=== PATIENT | female | born 1930 | race Caucasian/White ===

== ENCOUNTER 2017-10-07 09:04 | Outpatient (CLI) | payer MEDICARE ==
[2015-12-04 10:27] VITALS: O2SAT 99
== END 2017-10-07 09:05 | disposition home or self-care (01) | DRG 563 ==
LOC: CONVCARE 09:04
PROVIDERS: ATTEND Orthopaedic Surgery
DX: S52.531A Colles' fracture of right radius, initial encounter for closed fracture (principal)
CPT/HCPCS: 73110

== ENCOUNTER 2017-10-21 09:12 | Outpatient (CLI) | payer MEDICARE ==
[2015-12-04 10:27] VITALS: O2SAT 99
== END 2017-10-21 09:13 | disposition home or self-care (01) | DRG 561 ==
LOC: CONVCARE 09:12
PROVIDERS: ATTEND Orthopaedic Surgery
DX: S52.571D Other intraarticular fracture of lower end of right radius, subsequent encounter for closed fracture with routine healing (principal)
CPT/HCPCS: 73110

== ENCOUNTER 2017-11-04 10:40 | Outpatient (CLI) | payer MEDICARE ==
[2015-12-04 10:27] VITALS: O2SAT 99
== END 2017-11-04 10:41 | disposition home or self-care (01) | DRG 561 ==
LOC: CONVCARE 10:40
PROVIDERS: ATTEND Orthopaedic Surgery
DX: S52.501D Unspecified fracture of the lower end of right radius, subsequent encounter for closed fracture with routine healing (principal); S52.601D Unspecified fracture of lower end of right ulna, subsequent encounter for closed fracture with routine healing
CPT/HCPCS: 73110

== ENCOUNTER 2018-01-23 12:51 | Emergency (ER) | payer MEDICARE ==
[2018-01-23 12:56] VITALS: RESP 16; TEMP 97.6; O2SAT 97
[2018-01-23] MEDS: CEPHALEXIN 250 MG/5 ML BOTTLE PO ONE (13:24)
[2018-01-23 13:40] VITALS: BP 189/100; PULSE 70
== END 2018-01-23 13:37 | disposition home or self-care (01) | DRG 605 ==
LOC: ED 12:51
DX: S41.111A Laceration without foreign body of right upper arm, initial encounter (principal); I10 Essential (primary) hypertension
CPT/HCPCS: 12002; 99284; A9270-GY

== ENCOUNTER 2018-02-26 11:08 | Inpatient (IN) | payer MEDICARE ==
[2018-02-26] MEDS ORDERED: CLONIDINE 0.1 MG TAB ONE (11:29)
[2018-02-26] MEDS ORDERED: ONDANSETRON HCL 4 MG/2 ML SOL ONE (11:29)
[2018-02-26] MEDS ORDERED: ONDANSETRON HCL 4 MG/2 ML SOL IV ONE (11:37)
[2018-02-26] MEDS ORDERED: CLONIDINE 0.1 MG TAB PO ONE (11:37)
[2018-02-26 11:44] LABS: BASOPHILS % (AUTO) 0 % (0-3); EOSINOPHILS % (AUTO) 1 % (0-9); HEMATOCRIT 41 % (35-47); HEMOGLOBIN 13.7 gm/dl (12.0-15.5); LYMPHOCYTES % (AUTO) 12.61 % (10-50); MEAN CORPUSCULAR VOLUME 88 fL (81-99); MONOCYTES % (AUTO) 5.9 % (0-12); NEUTROPHILS % (AUTO) 80.5 % (37-80)
[2018-02-26] MEDS ORDERED: SODIUM CHLORIDE 0.9% 1000ML 500 ML IV SCH (11:45)
[2018-02-26 11:58] LABS: ALBUMIN 3.6 gm/dl (3.4-5.0); ALKALINE PHOSPHATASE 81 IU/L (46-116); ALT 26 IU/L (14-63); AST 23 IU/L (15-37); BILIRUBIN,TOTAL 0.7 mg/dl (0.2-1.0); BLOOD UREA NITROGEN 20 mg/dl (7-18); CALCIUM 9.1 mg/dl (8.5-10.1); CARBON DIOXIDE 28.6 mEq/L (21-32); CHLORIDE 89 mMol/L (98-107); CREATININE 0.69 mg/dl (0.60-1.00); GLOM FILT RATE 81 mL/min (>60); GLUCOSE 147 mg/dl (74-106); SODIUM 125 mMol/L (136-145); TOTAL PROTEIN 6.8 gm/dl (6.4-8.2); TROP I < 0.017 ng/ml (0.000-0.056)
[2018-02-26] MEDS ORDERED: METOCLOPRAMIDE HYDROCHLORIDE 5 MG/ML SOL IV ONE (12:44)
[2018-02-26] MEDS ORDERED: METOCLOPRAMIDE HYDROCHLORIDE 5 MG/ML SOL ONE (12:45)
[2018-02-26 12:47] LABS: APPEARANCE,URINE Cloudy; BILIRUBIN,URINE NEGATIVE (NEGATIVE); COLOR,URINE Yellow; GLUCOSE, URINE (UA) NEGATIVE (NEGATIVE); KETONES,URINE 1+ (NEGATIVE); LEUKOCYTE ESTERASE ,URINE NEGATIVE (NEGATIVE); NITRATE,URINE NEGATIVE (NEGATIVE); OCCULT BLOOD,URINE NEGATIVE (NEG-TRACE); PH,URINE 7.5; UROBILINOGEN,URINE 0.2 (0.2-1.0 EU)
[2018-02-26 13:03] LABS: EPITHELIAL CELLS 0-2 (SQUAMOUS); RBC,URINE NEG (0-3AV/HPF); WBC,URINE NEG (0-5AV/HPF)
[2018-02-26 13:04] LABS: BACTERIA NEGATIVE (< 1+); CRYSTALS 2+ AMORPH PHOSPHATES (0-3 AVE/HPF)
[2018-02-26] MEDS ORDERED: METOCLOPRAMIDE HYDROCHLORIDE 5 MG/ML SOL IV SCH (14:00)
[2018-02-26] MEDS ORDERED: PATIENT EDUCATION 1 MISC PRN (14:02)
[2018-02-26] MEDS: SODIUM CHLORIDE 0.9% 1000ML 1,000 ML IV SCH (15:00)
[2018-02-26] MEDS: SODIUM CHLORIDE 0.9% FLUSH 10 ML SOL IV PRN (15:03)
[2018-02-26] MEDS: METOCLOPRAMIDE HYDROCHLORIDE 5 MG/ML SOL IV PRN ×2 (15:05→23:41)
[2018-02-26] MEDS: METOPROLOL TARTRATE 25 MG TAB PO SCH (20:29)
[2018-02-26] MEDS ORDERED: ASPIRIN EC 81 MG PO SCH (21:00)
[2018-02-27] MEDS: SODIUM CHLORIDE 0.9% 1000ML 1,000 ML IV SCH ×2 (00:30→11:12)
[2018-02-27 07:34] LABS: CARBON DIOXIDE 26.9 mEq/L (21-32); CREATININE 0.51 mg/dl (0.60-1.00)
[2018-02-27] MEDS: METOCLOPRAMIDE HYDROCHLORIDE 5 MG/ML SOL IV PRN (07:48)
[2018-02-27] MEDS ORDERED: LISINOPRIL 5 MG TAB PO SCH (09:00)
[2018-02-27] MEDS: PANTOPRAZOLE SODIUM 40 MG ECT PO SCH (09:41)
[2018-02-27] MEDS: METOPROLOL TARTRATE 25 MG TAB PO SCH ×2 (09:41→20:14)
[2018-02-27] MEDS: SENNOSIDES A AND B 8.6 MG TAB PO SCH (09:41)
[2018-02-27] MEDS: POTASSIUM CHLORIDE 10 MEQ TER PO SCH ×2 (09:42→12:43)
[2018-02-27] MEDS: CHLORTHALIDONE 25 MG TAB PO SCH (09:43)
[2018-02-27] MEDS ORDERED: SODIUM CHLORIDE 0.9% 1000 ML SOL IV SCH (11:15)
[2018-02-27] MEDS ORDERED: ZOLPIDEM TARTRATE 5 MG TAB PO PRN (20:22)
[2018-02-27] MEDS ORDERED: POTASSIUM CHLORIDE 10 MEQ TER PO SCH (21:00)
[2018-02-27] MEDS: MECLIZINE HYDROCHLORIDE 12.5 MG TAB PO PRN (21:06)
[2018-02-28] MEDS: SODIUM CHLORIDE 0.9% FLUSH 10 ML SOL IV PRN ×2 (00:07→15:53)
[2018-02-28] MEDS: METOCLOPRAMIDE HYDROCHLORIDE 5 MG/ML SOL IV PRN (00:07)
[2018-02-28] MEDS: SENNOSIDES A AND B 8.6 MG TAB PO SCH (08:39)
[2018-02-28] MEDS: PANTOPRAZOLE SODIUM 40 MG ECT PO SCH (08:39)
[2018-02-28] MEDS: MECLIZINE HYDROCHLORIDE 12.5 MG TAB PO PRN (08:41)
[2018-02-28] MEDS: METOPROLOL TARTRATE 25 MG TAB PO SCH ×2 (08:42→21:48)
[2018-02-28] MEDS: LISINOPRIL 20 MG TAB PO SCH (08:42)
[2018-02-28] MEDS: CHLORTHALIDONE 25 MG TAB PO SCH (08:43)
[2018-02-28 09:02] LABS: BASOPHILS % (AUTO) 0 % (0-3); CALCIUM 8.3 mg/dl (8.5-10.1); CARBON DIOXIDE 28.9 mEq/L (21-32); CREATININE 0.51 mg/dl (0.60-1.00); EOSINOPHILS % (AUTO) 1 % (0-9); HEMATOCRIT 37 % (35-47); HEMOGLOBIN 12.8 gm/dl (12.0-15.5); LYMPHOCYTES % (AUTO) 17.88 % (10-50); MEAN CORPUSCULAR HEMOGLOBIN 29.5 pg (27.0-32.0); MEAN CORPUSCULAR HGB CONC 34.3 gm/dl (32.0-36.0); MEAN CORPUSCULAR VOLUME 86 fL (81-99); NEUTROPHILS % (AUTO) 72.3 % (37-80); POTASSIUM 3.6 mMol/L (3.5-5.1)
[2018-02-28] MEDS: POTASSIUM CHLORIDE 10 MEQ TER PO SCH ×2 (09:40→21:48)
[2018-02-28] MEDS: AMLODIPINE 5 MG TAB PO SCH (09:41)
[2018-02-28] MEDS ORDERED: ACETAMINOPHEN 325 MG PO PRN (13:06)
[2018-02-28] MEDS: SODIUM CHLORIDE 0.9% FLUSH 10 ML SOL IV SCH (16:30)
[2018-03-01] MEDS: SODIUM CHLORIDE 0.9% FLUSH 10 ML SOL IV SCH ×3 (00:51→18:26)
[2018-03-01 07:18] LABS: BASOPHILS % (AUTO) 1 % (0-3); EOSINOPHILS % (AUTO) 2 % (0-9); HEMATOCRIT 36 % (35-47); HEMOGLOBIN 12.4 gm/dl (12.0-15.5); LYMPHOCYTES % (AUTO) 23.52 % (10-50); MEAN CORPUSCULAR HEMOGLOBIN 29.6 pg (27.0-32.0); MEAN CORPUSCULAR HGB CONC 34.1 gm/dl (32.0-36.0); MEAN CORPUSCULAR VOLUME 87 fL (81-99); NEUTROPHILS % (AUTO) 63.1 % (37-80)
[2018-03-01 07:20] LABS: CALCIUM 8.1 mg/dl (8.5-10.1); CREATININE 0.57 mg/dl (0.60-1.00)
[2018-03-01 07:34] LABS: CARBON DIOXIDE 30.2 mEq/L (21-32)
[2018-03-01] MEDS: AMLODIPINE 5 MG TAB PO SCH (08:44)
[2018-03-01] MEDS: LISINOPRIL 20 MG TAB PO SCH (08:44)
[2018-03-01] MEDS: METOPROLOL TARTRATE 25 MG TAB PO SCH ×2 (08:46→20:38)
[2018-03-01] MEDS: PANTOPRAZOLE SODIUM 40 MG ECT PO SCH (08:46)
[2018-03-01] MEDS: SENNOSIDES A AND B 8.6 MG TAB PO SCH (08:50)
[2018-03-01] MEDS: POTASSIUM CHLORIDE 10 MEQ TER PO SCH ×2 (08:50→20:40)
[2018-03-01] MEDS: MECLIZINE HYDROCHLORIDE 12.5 MG TAB PO PRN ×2 (08:51→20:39)
[2018-03-02 01:23] VITALS: RESP 16
[2018-03-02] MEDS: MECLIZINE HYDROCHLORIDE 12.5 MG TAB PO PRN (06:04)
[2018-03-02 07:26] LABS: CALCIUM 8.3 mg/dl (8.5-10.1); CREATININE 0.6 mg/dl (0.60-1.00); POTASSIUM 4.1 mMol/L (3.5-5.1)
[2018-03-02 07:32] LABS: CARBON DIOXIDE 29.8 mEq/L (21-32)
[2018-03-02] MEDS: LISINOPRIL 20 MG TAB PO SCH (08:59)
[2018-03-02] MEDS: SENNOSIDES A AND B 8.6 MG TAB PO SCH (08:59)
[2018-03-02] MEDS: METOPROLOL TARTRATE 25 MG TAB PO SCH (08:59)
[2018-03-02] MEDS: PANTOPRAZOLE SODIUM 40 MG ECT PO SCH (08:59)
[2018-03-02] MEDS: AMLODIPINE 5 MG TAB PO SCH (08:59)
[2018-03-02] MEDS: POTASSIUM CHLORIDE 10 MEQ TER PO SCH (08:59)
[2018-03-02 18:19] VITALS: BP 156/75; PULSE 86; TEMP 98.5; O2SAT 95
== END 2018-03-02 18:04 | disposition home or self-care (01) | DRG 86 ==
LOC: ED 11:08 → UNDOADMIN 13:35 → ACUTE CARE 13:35
PROVIDERS: ADMIT Family Medicine; ATTEND Family Medicine
PROC: F0133ZZ Coordination/Dexterity Assessment of Neurological System - Whole Body (ICD-10-PCS; principal; 2018-02-27)
PROC: F01ZBZZ Bed Mobility Assessment (ICD-10-PCS; 2018-02-27)
PROC: F02Z2ZZ Feeding/Eating Assessment (ICD-10-PCS; 2018-02-28)
PROC: F02Z3FZ Grooming/Personal Hygiene Assessment using Assistive, Adaptive, Supportive or Protective Equipment (ICD-10-PCS; 2018-02-28)
DX: S02.11GA Other fracture of occiput, right side, initial encounter for closed fracture (principal); E87.1 Hypo-osmolality and hyponatremia; W19.XXXA Unspecified fall, initial encounter; R11.0 Nausea; R40.2362 Coma scale, best motor response, obeys commands, at arrival to emergency department; R40.2142 Coma scale, eyes open, spontaneous, at arrival to emergency department; R40.2252 Coma scale, best verbal response, oriented, at arrival to emergency department; E87.6 Hypokalemia; R53.1 Weakness; I10 Essential (primary) hypertension
CPT/HCPCS: 36415; 70450; 80048; 80053; 81001; 84484; 85025; 93005; 93012; 96365; 96374; 96375; 99222; 99232; 99285; J2405; J2765; A9270-GY